=== PATIENT | male | born 1960 | race Caucasian/White ===

== ENCOUNTER 2025-02-07 20:16 | Emergency (ER) | payer MEDICARE, OTHER ==
[2025-02-07] MEDS ORDERED: Phenylephrine 40 MG/NS 250 ML 250 ML ONE (20:27)
[2025-02-07 20:48] LABS: #Basophils Less than 0.03 10x3/uL (0.0-0.2); #Eosinophils Less than 0.03 10x3/uL (0.0-0.7); #Monocytes 0.16 10x3/uL (0.11-0.59); #Neutrophils 6.81 10x3/uL (1.40-6.50); %Basophils 0.1 % (0.0-1.0); %Eosinophils 0.1 % (0.0-10.0); %Lymphocytes 10.2 % (21.0-51.0); %Monocytes 2.0 % (0.0-10.0); %Neutrophils 86.0 % (42.0-75.0); Hematocrit 31.4 % (42.0-52.0); Hemoglobin 9.3 g/dL (14.0-18.0); Mean Corpuscular Hemoglobin 31.7 pg (27.0-31.0); Mean Corpuscular Volume 107.2 fL (78.0-98.0); Platelet Count 114 10x3/uL (130-400); Red Blood Cell (RBC) Count 2.93 mill/uL (4.70-6.10); White Blood Cell (WBC) Count 7.93 10x3/uL (4.8-10.8)
[2025-02-07 20:54] LABS: Prothrombin Time 58.3 sec (12.0-14.7)
[2025-02-07 21:02] LABS: INR-International Normal Ratio 6.6; PTT 170.6 sec (22.9-36.1)
[2025-02-07 21:05] LABS: ALT (SGPT) 4212 U/L (Less than 45)
[2025-02-07 21:10] LABS: AST (SGOT) 3602 U/L (11-34); Albumin 1.9 g/dL (3.1-4.5); Alkaline Phosphatase 79 U/L (40-110); Anion Gap 37 mmol/L (10-20); BUN (Urea Nitrogen) 46 mg/dL (8.4-25.7); Bilirubin, Total 0.6 mg/dL (0.3-1.2); Calc. Creatinine Clearance 0 mL/min (70-130); Calcium 11.7 mg/dL (7.8-10.44); Carbon Dioxide 21 mmol/L (22-29); Chloride 109 mmol/L (98-107); Globulin 2.0 g/dL (2.4-3.5); Glucose 120 mg/dL (70-105); Potassium 5.1 mmol/L (3.5-5.1); Sodium 162 mmol/L (136-145)
[2025-02-07 21:12] LABS: Anisocytosis SLIGHT = 6-15 cells HPF (0-5); Burr Cells MODERATE= 6-15 cells HPF (0-1); Macrocytosis SLIGHT = 6-15 cells HPF (0-5); Platelet Adequacy Comment Platelets Decreased; Poikilocytosis MODERATE=16-30 cells HPF (0-5); Polychromasia SLIGHT = 2-3 cells HPF (0-2)
[2025-02-07 21:24] LABS: Acetaminophen Less than 10 mcg/mL (Less than 10); Salicylate Less than 8.0 mg/dL (Less than 8.0)
== END 2025-02-07 20:47 | disposition expired ==
LOC: ERS 20:16 → EDUNIT# 20:16 → EDBD 20:16 → ERS 20:47
DX: I46.9 Cardiac arrest, cause unspecified (principal); K72.00 Acute and subacute hepatic failure without coma; K92.2 Gastrointestinal hemorrhage, unspecified; K66.8 Other specified disorders of peritoneum; E87.0 Hyperosmolality and hypernatremia; J44.9 Chronic obstructive pulmonary disease, unspecified; R79.1 Abnormal coagulation profile; Z79.82 Long term (current) use of aspirin; Z79.899 Other long term (current) drug therapy
CPT/HCPCS: 36430; 74018; 80053; 80307; 83605; 84484; 85025; 85610; 85730; 86850; 86900; 86901; 94002; 94760; 96365; 96368; 96375; P9016